=== PATIENT | male | born 1995 | race Hispanic/Latino ===

== ENCOUNTER 2018-05-11 20:25 | Emergency (ER) | payer OTHER ==
[2018-05-11] MEDS ORDERED: Lidocaine 1% (PF) 30 ML VIAL ONE (20:52)
--- NOTE | 2018-05-11 21:07 | RAD ---
THREE VIEWS OF THE LEFT INDEX FINGER 05/11/18 COMPARISON: None. HISTORY: Crush injury with a pipe, laceration. FINDINGS: No radiopaque foreign body, displaced fracture, or dislocation seen. Soft tissue irregularity medial to the second proximal interphalangeal joint suggests a soft tissue injury. IMPRESSION: No acute osseous abnormality. POS: [facility]
[2018-05-11] MEDS ORDERED: Bacitracin Zinc 1 Packet ONE (21:08)
== END 2018-05-11 21:50 | disposition home or self-care (01) ==
LOC: NAV ERS 20:25
DX: S61.211A Laceration without foreign body of left index finger without damage to nail, initial encounter (principal); W31.9XXA Contact with unspecified machinery, initial encounter; Y92.69 Other specified industrial and construction area as the place of occurrence of the external cause
CPT/HCPCS: 12002; J2001

== ENCOUNTER 2024-06-30 15:18 | Emergency (ER) | payer SELFPAY | END 2024-06-30 15:50 | disposition home or self-care (01) | LOC: NAV ERS 15:18 | DX: H61.23 Impacted cerumen, bilateral (principal); H65.92 Unspecified nonsuppurative otitis media, left ear | CPT/HCPCS: 99282 ==